=== PATIENT | male | born 1960 | race Caucasian/White ===

== ENCOUNTER 2021-09-14 11:20 | Emergency (ER) | payer MEDICAID, SELFPAY ==
--- NOTE | ~2021-09-14 | CT_ITS ---
EXAMINATION: CT ABDOMEN AND PELVIS WITHOUT CONTRAST CLINICAL INFORMATION: n/v/d, epigastric pain COMPARISON: None TECHNIQUE: Multidetector volumetric imaging was performed from the superior aspect of the liver through the pubic symphysis. Sagittal and coronal reformatted images were obtained on the technologist's workstation. This CT examination was performed using dose optimization techniques as appropriate, variously including the following: *Automated exposure control *Adjustment of mA and/or kV according to patient size (this includes techniques or standardized protocols for targeted exams where dose is matched to indication/reason for exam; i.e. extremities or head) *Use of iterative reconstruction technique DLP: 837 mGy-cm FINDINGS: LUNG BASES: The visualized lung bases are unremarkable. LIVER, GALLBLADDER, AND BILIARY TREE: The liver is normal in size, shape, and attenuation. No focal hepatic lesion or biliary ductal dilatation is present. Status post cholecystectomy. PANCREAS: Unremarkable. SPLEEN: Unremarkable. ADRENAL GLANDS: Unremarkable. KIDNEYS AND URETERS: The kidneys are normal in size, shape, and attenuation. There is a benign exophytic anterior left lower pole benign Bosniak class I cyst which needs no further imaging or follow-up. No solid renal masses. No hydronephrosis, hydroureter, or calculi seen. No perinephric stranding. BLADDER: Unremarkable. GASTROINTESTINAL TRACT: A small hiatal hernia is present. rThe small and large bowel are unremarkable. The appendix is unremarkable. ABDOMINAL WALL: No significant hernia is appreciated. There is a tiny periumbilical hernia seen containing only fat. LYMPH NODES: Normal. VASCULAR: Unremarkable. The aortic bifurcation is tortuous. PELVIC VISCERA: Prostate and seminal vesicles appear normal. OSSEOUS STRUCTURES: Degenerative changes are present in the spine most marked at L2-L3 and L5-S1. CT/CT abdomen pelvis wo con IMPRESSION: A cause for the patient's nausea, vomiting, diarrhea and epigastric pain has not been found. Fleischner guidelines were followed.
[2021-09-14 11:32] VITALS: BP 120/76; PULSE 92; RESP 18; TEMP 37.1; O2SAT 97
[2021-09-14 11:33] VITALS: BP 118/85; BP 120/76; PULSE 98; PULSE 99; RESP 16; O2SAT 100; O2SAT 95; BMI 35.7
--- NOTE | 2021-09-14 11:43 | ED_ITS ---
HPI - Nausea/Vomiting/Diarrhea General Chief complaint: Nausea/Vomiting/Diarrhea Stated complaint: N/V/D X'S 10 HOURS PER EMS Time Seen by Provider: 09/14/21 11:42 Source: patient Mode of arrival: EMS Limitations: no limitations History of Present Illness HPI Narrative: 7-year-old male with a past medical history of GERD, cataract surgery, detached retina right eye, chronic dental pain, presents for nausea, vomiting, and diarrhea that started 3 and this morning. Patient has had multiple episodes of diarrhea and vomiting, he was not able to make it to the bathroom during 1 diarrheal episode earlier today. He feels weak, he has body aches and chills. Body aches and chills also started this morning. He has pain in the middle of his abdomen. No cough, no fevers, no dysuria urinary frequency, no dark, tarry, or bloody stools. No sick contacts. Patient states that he did drink a beer that was sitting out for several days last night. No bad foods. No recent antibiotic use. Patient does state he takes 6-8 Excedrin a day for chronic dental pain. Associated nausea: Yes Related Data Previous Rx's Medication Instructions Recorded ondansetron 4 mg disintegrating 4 mg PO Q8H PRN nausea and 09/14/21 tablet vomiting #9 tabs Allergies Allergy/AdvReac Type Severity Reaction Status Date / Time No Known Allergies Allergy Verified 09/14/21 11:33 Review of Systems Constitutional: Constitutional: Reports body ache(s), Reports chills, Reports fatigue, Denies fever(s), Denies headache(s), Denies malaise and Reports weakness Eyes: Eyes: Denies diplopia ENT: Reports dental pain (chronic), Denies vertigo, Denies dizziness, Denies otalgia, Denies headache(s), Denies post nasal drip and Denies sore throat Cardiovascular: Cardiovascular: Denies chest pain, Denies syncope, Denies leg edema, Denies lightheadedness, Denies Loss of Consciousness, Denies palpitations and Denies dyspnea Respiratory: Respiratory: Denies chest congestion, Denies cough and Denies dyspnea Gastrointestinal: Gastrointestinal: Reports abdominal pain, Denies melena, Denies hematochezia, Denies coffee ground emesis, Denies constipation, Reports fecal incontinence, Reports diarrhea, Reports nausea, Reports vomiting and Denies hematemesis Genitourinary: Genitourinary: Denies hematuria, Denies dysuria, Denies flank pain, Denies urinary incontinence and Denies urinary urgency Musculoskeletal: Musculoskeletal: Reports myalgias Neurologic: Denies confusion, Denies vertigo, Denies dizziness, Denies syncope, Denies headache(s) and Reports weakness Psychiatric: Psychiatric: Denies anxiety, Denies confusion and Denies depression Endocrine: Endocrine: Reports fatigue and Denies palpitations PMFSH Social History Social History Advance Directives: No Advance Directives Information Provided: No Physical Exam Vital Signs: Vital Signs: Last Vital Signs Temp 98.3 F 09/14/21 14:43 Pulse 97 09/14/21 13:41 Resp 16 09/14/21 13:41 BP 109/76 09/14/21 13:41 Pulse Ox 98 09/14/21 13:41 O2 Del Method 09/14/21 13:41 BMI result Body Mass Index 35.7 Const: General: No confusion Nutritional Appearance: well nourished Orientation/consciousness: No confusion Limitations: no limitations HEENT: Head: Yes normocephalic and Yes atraumatic Face and sinus: Yes n ormal facial exam Mouth: oropharynx normal and mucous membranes dry Throat: Yes posterior oropharynx normal Eyes: Conjunctivae: conjunctivae normal Pupils: Equal, round and reactive pupils present EOM: EOMs intact bilaterally Neck: Neck: Yes full ROM, Yes no lymphadenopathy and Yes supple Resp: Effort & Inspection: normal respiratory effort and able to speak in complete sentences Auscultation: clear to auscultation bilaterally, no crackles, no rales, no rhonchi and no wheezes Cardio: Rate: regular rate Rhythm: regular rhythm Heart sounds: S1 normal heart sound present and S2 normal heart sound present GI: Inspection: Yes Abdominal panniculus present and Yes obesity Palpation (GI): Soft to palpation, Tenderness to palpation present (GI) in the epigastrum, Guarding due to palpation present (GI) (epigastric) and not rigid Percussion: Yes normal to percussion Auscultation: normal bowel sounds Skin: General skin exam: no rashes or lesions noted Neuro: General: No confusion Cranial nerves: Yes Equal, round and reactive pupils present Extrem: General: Yes normal to inspection and Yes full ROM Psych: Appearance: grossly normal Affect: normal affect Attitude: cooperative Thought process: Normal thought process present Course Course Course Narrative: 61-year-old male presents with multiple episodes of vomiting and diarrhea that started at 03:00 this morning. Patient has had body aches and chills as well, drink a beer that was sitting out for several days last night. On exam, patient is afebrile with normal vitals. Patient obviously feels ill, has dry mucous membranes, is tender in his epigastrium and guarding in his epig astrium. Patient denies anything dark tarry or bloody in his stool. Will get C diff, stool leukocytes, test for COVID and flu, get EKG, lipase, labs, CT abdomen. Will give Zofran and IV fluids. Patient states he only has pain in his abdomen when I palpated, no pain at rest although he is nauseous Reevaluation(s) Reevaluation #1: Patient is negative for COVID, negative for influenza a, EKG is negative, lipase is normal, labs are only remarkable for a mild leukocytosis of 14.5. CT of abdomen is unremarkable. Patient has been unable to give a urine. on reexamination, patient is not nauseous. He has not had any vomiting or diarrhea since he has been here. He has received Zofran, and 2 L of fluids, he is feeling better. Most likely a viral gastroenteritis, will discharge home with return precautions, zofran, BRAT diet FINDINGS: LUNG BASES: The visualized lung bases are unremarkable.? LIVER, GALLBLADDER, AND BILIARY TREE: The liver is normal in size, shape, and attenuation. No focal hepatic lesion or biliary ductal dilatation is present. Status post cholecystectomy.? PANCREAS: Unremarkable.? SPLEEN: Unremarkable.? ADRENAL GLANDS: Unremarkable.? KIDNEYS AND URETERS: The kidneys are normal in size, shape, and attenuation. There is a benign exophytic anterior left lower pole benign Bosniak class I cyst which needs no further imaging or follow-up. No solid renal masses. No hydronephrosis, hydroureter, or calculi seen. No perinephric stranding. ? BLADDER: Unremarkable.? GASTROINTESTINAL TRACT: A small hiatal hernia is present. rThe small and large bowel are unremarkable. The appendix is unremarkable.? ABDOMINAL WALL: No significant hernia is appreciated. There is a tiny periumbilical hernia seen containing only fat. LYMPH NODES: Normal. VASCULAR: Unremarkable. The aortic bifurcation is tortuous. PELVIC VISCERA: Prostate and seminal vesicles appear normal.? OSSEOUS STRUCTURES: Degenerative changes are present in the spine most marked at L2-L3 and L5-S1.? CT/CT abdomen pelvis wo con IMPRESSION: A cause for the patient's nausea, vomiting, diarrhea and epigastric pain has not been found.? MDM - Nausea/Vomiting/Diarrhea Lab Data Result diagrams: 09/14/21 12:24 09/14/21 12:24 Labs: Lab Results 09/14/21 09/14/21 09/14/21 Range/Units 12:24 12:24 12:24 WBC 14.5 H (4.8-10.8) X10*3/uL RBC 5.03 (4.60-5.80) X10*6/uL Hgb 15.5 (14.0-18.0) g/dl Hct 46.6 (42.0-52.0) % MCV 92.6 (80.0-98.0) fL MCH 30.8 (27.0-33.0) pg MCHC 33.3 (31.0-36.0) g/dl RDW 13.1 (11.0-16.0) % Plt Count 240 (160-400) X10*3/uL MPV 10.3 (9.4-12.4) fL Immature Gran % (Auto) 0.5 H (0.0-0.4) % Neut % (Auto) 95.0 H (45-73) % Lymph % (Auto) 1.3 L (20-40) % [place] % (Auto) 2.9 (2-11) % Eos % (Auto) 0.1 (0-4) % Baso % (Auto) 0.2 (0-2) % Lymph # (Auto) 0.2 L (1.2-4.9) X10*3/uL [place] # (Auto) 0.4 (0.1-1.2) X10*3/uL Eos # (Auto) 0.0 (0.0-0.4) X10*3/uL Baso # (Auto) 0.0 (0.0-0.2) X10*3/uL Abs Immat Gran (auto) 0.07 H (0.00-0.03) X10*3/uL Absolute Neuts (auto) 13.8 H (2.0-8.3) x10*3/uL Absolute Nucleated RBC 0.000 (0.0-0.012) X10*3/uL Nucleated RBC % (auto) 0.0 (0.0-0.2) /100WBC Smear Tech's Comments VERIFIED Sodium 139 (135-145) mmol/L Potassium 4.8 (3.3-5.1) mmol/L Chloride 105 (96-108) mmol/L Carbon Dioxide 23 (22-29) mmol/L Anion Gap 16 (12-20) BUN 25 H (9-16) mg/dL Creatinine 1.00 (0.5-1.4) mg/dL Estim Creat Clear Calc 92.9 Estimated GFR > 60 Random Glucose 135 H (60-115) mg/dL Calcium 9.3 (8.4-10.2) mg/dL Total Bilirubin 0.6 (0.0-1.0) mg/dL AST 17 (5-37) U/L ALT 26 (0-40) U/L Alkaline Phosphatase 70 (39-117) U/L Total Protein 7.9 (6.5-8.0) g/dL Albumin 4.6 (3.5-5.0) g/dL Lipase 12 (8-78) U/L COVID-19 (ELDA) (Negative) COVID-19 Clin Com Influenza Type A (KRIS) Negative (Negative) Influenza Type B (KRIS) Negative (Negative) Influenza A & B Note See Note 09/14/21 Range/Units 12:24 WBC (4.8-10.8) X10*3/uL RBC (4.60-5.80) X10*6/uL Hgb (14.0-18.0) g/dl Hct (42.0-52.0) % MCV (80.0-98.0) fL MCH (27.0-33.0) pg MCHC (31.0-36.0) g/dl RDW (11.0-16.0) % Plt Count (160-400) X10*3/uL MPV (9.4-12.4) fL Immature Gran % (Auto) (0.0-0.4) % Neut % (Auto) (45-73) % Lymph % (Auto) (20-40) % [place] % (Auto) (2-11) % Eos % (Auto) (0-4) % Baso % (Auto) (0-2) % Lymph # (Auto) (1.2-4.9) X10*3/uL [place] # (Auto) (0.1-1.2) X10*3/uL Eos # (Auto) (0.0-0.4) X10*3/uL Baso # (Auto) (0.0-0.2) X10*3/uL Abs Immat Gran (auto) (0.00-0.03) X10*3/uL Absolute Neuts (auto) (2.0-8.3) x10*3/uL Absolute Nucleated RBC (0.0-0.012) X10*3/uL Nucleated RBC % (auto) (0.0-0.2) /100WBC Smear Tech's Comments Sodium (135-145) mmol/L Potassium (3.3-5.1) mmol/L Chloride (96-108) mmol/L Carbon Dioxide (22-29) mmol/L Anion Gap (12-20) BUN (9-16) mg/dL Creatinine (0.5-1.4) mg/dL Estim Creat Clear Calc Estimated GFR Random Glucose (60-115) mg/dL Calcium (8.4-10.2) mg/dL Total Bilirubin (0.0-1.0) mg/dL AST (5-37) U/L ALT (0-40) U/L Alkaline Phosphatase (39-117) U/L Total Protein (6.5-8.0) g/dL Albumin (3.5-5.0) g/dL Lipase (8-78) U/L COVID-19 (ELDA) Negative (Negative) COVID-19 Clin Com See Note Influenza Type A (KRIS) (Negative) Influenza Type B ([facility]IS) (Negative) Influenza A & B Note ECG Data Interpretation: Sinus at a rate of 91, SD interval 148, QRS 72, QTC 415, normal axis, no ST depression or elevation, no T-wave abnormalities Discharge Plan Discharge Clinical Impression: Gastroenteritis Patient Disposition: Home, Self-Care Instructions: Gastroenteritis (ED) Additional Instructions: your symptoms could be due to a viral illness, or they could be due to food poisoning from drinking the beer that was left out. please call your primary care provider for follow-up appointment from today's emergency room visit. Please drink plenty of fluids, I have prescribed a medication to your pharmacy that helps with nausea. Please take that as needed and as prescribed, only take 1 every 8 hours please use a diet that is non greasy non spicy unplanned, for example, you may want to eat bananas, rice, applesauce, toast. This is very easy on your stomach, and can help find her stools together please return to the emergency room if you have worsening vomiting and diarrhea, chest pain, shortness of breath, severe abdominal pain, or any other new or concerning symptoms Prescriptions: New ondansetron 4 mg tablet,disintegrating 4 mg PO Q8H PRN (Reason: nausea and vomiting) Qty: 9 0RF Stand Alone Forms: Work/School Release
--- NOTE | 2021-09-14 11:50 | PC.NURSE ---
Pt comes in with complaints of N/V/D nd body aches since 299, denies abd pain or fevers. Pt is A&Ox3, LCA, abd soft non tender +BS x 4
--- NOTE | 2021-09-14 11:56 | ECG_ITS ---
Test Reason : abd pain Blood Pressure : / mmHG Vent. Rate : 091 BPM Atrial Rate : 091 BPM P-R Int : 148 ms QRS Dur : 072 ms QT Int : 338 ms P-R-T Axes : 062 008 -01 degrees QTc Int : 415 ms Normal sinus rhythm Nonspecific T wave abnormality Abnormal ECG No previous ECGs available Referred By: Antionette Huntley Electronically Signed By:MONROE MICHAEL MD
[2021-09-14] MEDS: 0.9 % Sodium Chloride 1,000 ML 999 ML IV ×3 (12:25→14:27)
[2021-09-14] MEDS: ondansetron HCL 4 MG/2 ML VIAL IVPUSH (12:25)
[2021-09-14 12:35] LABS: Basophils Percent Auto 0.2 % (0-2); Eosinophils Percent Auto 0.1 % (0-4); Hematocrit 46.6 % (42.0-52.0); Hemoglobin 15.5 g/dl (14.0-18.0); Imm Gran Abs Auto 0.07 X10*3/uL (0.00-0.03); Imm Gran Pct Auto 0.5 % (0.0-0.4); Lymphocytes Absolute Auto 0.2 X10*3/uL (1.2-4.9); Lymphocytes Percent Auto 1.3 % (20-40); MANUAL DIFF FLAG SCAN; Mean Corpuscular HGB Conc 33.3 g/dl (31.0-36.0); Mean Corpuscular Hemoglobin 30.8 pg (27.0-33.0); Mean Corpuscular Volume 92.6 fL (80.0-98.0); Mean Platelet Volume 10.3 fL (9.4-12.4); Monocytes Absolute Auto 0.4 X10*3/uL (0.1-1.2); Monocytes Percent Auto 2.9 % (2-11); Neutrophils Absolute Auto 13.8 x10*3/uL (2.0-8.3); Platelet Count 240 X10*3/uL (160-400); Red Blood Count 5.03 X10*6/uL (4.60-5.80); Red Cell Distribution Width 13.1 % (11.0-16.0); SCAN SMEAR FLAG 1; White Blood Count 14.5 X10*3/uL (4.8-10.8)
[2021-09-14 12:49] LABS: Alanine Aminotransferase 26 U/L (0-40); Albumin Level 4.6 g/dL (3.5-5.0); Alkaline Phosphatase 70 U/L (39-117); Anion Gap 16 (12-20); Aspartate Amino Transferase 17 U/L (5-37); Bilirubin Total 0.6 mg/dL (0.0-1.0); Blood Urea Nitrogen 25 mg/dL (9-16); Calcium 9.3 mg/dL (8.4-10.2); Carbon Dioxide 23 mmol/L (22-29); Chloride 105 mmol/L (96-108); Creatinine Clr Calc Pharmacy 92.9; Estimated Glomerular Filt Rate > 60; Glucose Random 135 mg/dL (60-115); Lipase 12 U/L (8-78); Potassium 4.8 mmol/L (3.3-5.1); Sodium 139 mmol/L (135-145); Total Protein 7.9 g/dL (6.5-8.0)
[2021-09-14 12:56] LABS: COVID-19 Test Negative (Negative); IDNOW Serial# 16C4AD1C; Influenza A Negative (Negative); Influenza B2 Negative (Negative)
[2021-09-14 13:13] LABS: SLIDE REVIEW VERIFIED
[2021-09-14 13:41] VITALS: BP 109/76; PULSE 97; RESP 16; O2SAT 98
[2021-09-14] MEDS: Acetaminophen 325 MG TABLET 975 MG PO (14:29)
[2021-09-14 14:43] VITALS: TEMP 36.8
[2021-09-14 16:20] LABS: Appearance Urine CLEAR; Color Urine YELLOW; Glucose Urine UA NEG (NEG); Leukocyte Esterase Urine NEG (NEG); Nitrite Urine NEG (NEG); Specific Gravity - Urine >= 1.030 (1.005-1.025); Urine Blood NEG (NEG); Urine Ketones NEG (NEG); Urine Protein NEG (NEG-TRACE)
== END 2021-09-14 16:16 | disposition home or self-care (01) ==
PROVIDERS: Physician Assistant; Emergency Provider Student in an Organized Health Care Education/Training Program
DX: K52.9 Noninfective gastroenteritis and colitis, unspecified (principal); M79.10 Myalgia, unspecified site; Z20.822 Contact with and (suspected) exposure to COVID-19; Z79.899 Other long term (current) drug therapy
CPT/HCPCS: 74176; 80053; 81003; 83690; 85025; 87502; 87635; 93005; 96361; 96374; 99285; J2405